=== PATIENT | male | born 1955 | race Caucasian/White ===

== ENCOUNTER 2019-01-15 08:12 | Day surgery (SDC) | payer BC ==
[2019-01-03 10:37] LABS: HEMATOCRIT 46.4 % (37.9-51.0); HEMOGLOBIN 15.9 g/dL (13.5-17.0); MEAN CORPUSCULAR HEMOGLOBIN 32.1 pg (27.0-33.4); MEAN CORPUSCULAR HGB CONC 34.3 g/dL (32.0-36.0); MEAN CORPUSCULAR VOLUME 94 fl (80-97); PLATELET COUNT 218 10^3/uL (150-450); RED BLOOD COUNT 4.95 10^6/uL (4.35-5.55); RED CELL DISTRIBUTION WIDTH 14.7 % (11.5-14.0); WHITE BLOOD COUNT 4.9 10^3/uL (4.0-10.5)
--- NOTE | 2019-01-03 12:45 | EKG REPORT ---
SEVERITY:- NORMAL ECG - SINUS RHYTHM : Confirmed by: Trent Case MD 03-Jan-2019 12:44:35
[~2019-01-15 08:12] MED LIST: CEFAZOLIN 1 GM/D5W RTU 1 GM/50 ML RTUPB IV ONE; CEFAZOLIN 1 GM/D5W RTU 1 GM/50 ML RTUPB IV PRN; LACTATED RINGERS 1000 ML IV PRN; LIDOCAINE 0.5% INJ-PF (5 MG/ML) 50 ML SDV SUBCUT PRN
[2019-01-15] MEDS ORDERED: ALBUTEROL SULFATE 0.083% NEB 2.5 MG/3 ML AMPUL NEB ONE (09:06)
[2019-01-15 10:10] LABS: ANION GAP 6 (5-19); BLOOD UREA NITROGEN 15 mg/dL (7-20); CALCIUM 9.8 mg/dL (8.4-10.2); CARBON DIOXIDE 27 mmol/L (22-30); CHLORIDE 107 mmol/L (98-107); GLUCOSE 92 mg/dL (75-110); POTASSIUM 4.3 mmol/L (3.6-5.0)
[2019-01-15] MEDS ORDERED: FENTANYL CITRATE INJ/PF 250 MCG/5 ML AMPULE ONE (10:24)
[2019-01-15] MEDS ORDERED: ONDANSETRON HCL INJ/PF 4 MG/2 ML SDV ONE (10:24)
[2019-01-15] MEDS ORDERED: DEXAMETHASONE SOD PHOSPHATE INJ 4 MG/1 ML VIAL ONE (10:24)
[2019-01-15] MEDS ORDERED: MIDAZOLAM 2 MG/2 ML INJ ONE (10:24)
[2019-01-15] MEDS ORDERED: MORPHINE SULFATE 10 MG/ML INJ ONE (10:24)
[2019-01-15] MEDS ORDERED: PROPOFOL INJ 200 MG/20 ML VIAL IV ONE (10:24)
[2019-01-15] MEDS ORDERED: FENTANYL CITRATE INJ/PF 100 MCG/2 ML AMPUL IV PRN ×3 (11:19)
[2019-01-15] MEDS ORDERED: MEPERIDINE HCL/PF INJ 25 MG/1 ML DISP.SYRIN IV PRN (11:19)
[2019-01-15] MEDS ORDERED: DIPHENHYDRAMINE HCL 50 MG/ML VIAL IV PRN (11:19)
[2019-01-15] MEDS ORDERED: MORPHINE SULFATE 10 MG/ML INJ IV PRN (11:19)
[2019-01-15] MEDS ORDERED: PROMETHAZINE HCL INJ 25 MG/1 ML VIAL IV PRN ×2 (11:19)
[2019-01-15] MEDS ORDERED: METHYLENE BLUE 50 MG/10 ML AMPULE ONE (12:02)
[2019-01-15] MEDS ORDERED: METHYLENE BLUE 50 MG/10 ML AMPULE MC ONE (12:05)
[2019-01-15] MEDS ORDERED: METOCLOPRAMIDE HCL INJ/PF 10 MG/2 ML SDV ONE (12:22)
[2019-01-15] MEDS ORDERED: PROMETHAZINE HCL INJ 25 MG/1 ML VIAL ONE (12:22)
[2019-01-15] MEDS ORDERED: ROCURONIUM BROMIDE INJ 50 MG/5 ML VIAL IV ONE (12:23)
--- NOTE | 2019-01-15 12:30 | Operative Report ---
Nonrecallable Operative Report DATE OF SURGERY: 01/15/19 PREOPERATIVE DIAGNOSIS: Umbilical hernia lower abdominal pain POSTOPERATIVE DIAGNOSIS: Umbilical hernia polyps/mass at 30 cm OPERATION: Colonoscopy biopsy of mass at 30 cm tattoo at 30 cm SURGEON: LOWELL LAFLEUR ANESTHESIA: GA TISSUE REMOVED OR ALTERED: Biopsy mass at 30 cm COMPLICATIONS: None ESTIMATED BLOOD LOSS: 2 cc INTRAOPERATIVE FINDINGS: Multiple polyps multiple diverticula questionable mass at 30 cm PROCEDURE: Patient was brought to the operating room awake alert stable condition placed the operative table left lateral decubitus position given general anesthesia appropriate timeout and site verification the Olympus colonoscope was utilized for the procedure was placed into the rectum easily passed up to a distance of approximately 25 cm at 25 cm there was stricturing versus tortuous sigmoid colon which took some manipulation to be able to get the scope past that area it appeared that it did not insufflate well and somewhat fixed there are multiple diverticula and at that point we noted large sessile polyps x3 that would be biopsied on exit of the scope. Much manipulation turned the patient in a supine position were able to pass that area to the descending colon we then traversed the descending colon to the sp lenic flexure the transverse colon was identified the hepatic flexure was and the ascending colon to the cecum We then began to slowly withdrew the scope and examined the ascending colon which appeared to be normal as was the hepatic flexure and transverse colon we came around the splenic flexure that appeared to be normal the descending colon also appeared to be normal easily distensible once we were at 30 cm the colon became less distensible noted multiple diverticula. At 30 cm we noted multiple sessile polyps that were large and appeared inflammatory the photodocumentation was obtained. Multiple biopsies of this area were obtained. We then slowly proceeded to remove the scope past the 30 cm ingrid to the distal sigmoid and rectum that appeared to be normal without any evidence of further polyps or masses. The scope was removed. At this point a decision was made not to proceed with the umbilical hernia repair portion of this procedure in lieu of waiting for the biopsies of the sig moid colon CT scan will be obtained because of the fixed stricture. For the patient was awoken in the operating room extubated and transferred recovery in stable condition Needle counts were correct x made blood loss was 2 cc .
--- NOTE | 2019-01-15 12:33 | Discharge Summary ---
Discharge Summary (SDC) - Discharge Final Diagnosis: Sigmoid polyps rule out sigmoid colon cancer, screening colonoscopy Date of Surgery: 01/15/19 Condition: Good Forms: ASU Anesthesia D/C Instruction, Discharge POC-Surgical Service Referrals: LOWELL LAFLEUR MD [ACTIVE STAFF] - 01/28/19 9:15 am Discharge Diet: As Tolerated Discharge Activity: Activity As Tolerated Report the Following to Your Physician Immediately: Increase in Pain - She needs a follow-up appointment with me in 1 week
[2019-01-15] MEDS ORDERED: SIMETHICONE 80 MG TAB.CHEW ONE (12:57)
--- NOTE | 2019-01-15 14:46 | RADIOLOGY REPORT (SQ) ---
EXAM DESCRIPTION: ABDOMEN 2 VIEWS COMPLETED DATE/TIME: 01/15/2019 2:32 pm REASON FOR STUDY: POST OP PACU R19.4 CHANGE IN BOWEL HABIT R10.9 UNSPECIFIED ABDOMINAL PAIN K42.9 UMBILICAL HERNIA WITHOUT OBSTRUCTION OR GANGRENE COMPARISON: None. NUMBER OF VIEWS: Two views. TECHNIQUE: Supine and erect/decubitus radiographic images of the abdomen acquired. LIMITATIONS: None. FINDINGS: FREE AIR: None. No abnormal gas collections. LUNG BASES: Scarring or atelectasis in the left base. BOWEL GAS PATTERN: Distended large and small bowel most likely ileus. CALCIFICATIONS: No suspicious calcifications. SOFT TISSUES: No gross mass or suggestion of organomegaly. HARDWARE: None in the abdomen. BONES: No acute fracture. No worrisome bone lesions. OTHER: No other significant finding. IMPRESSION: No evidence of pneumoperitoneum. Distended large and small bowel most likely ileus. TECHNICAL DOCUMENTATION: JOB ID: [id number] [employer]- All Rights Reserved Reading location - IP/workstation name: [email or web address]
[2019-01-15 16:07] VITALS: BP 131/90
== END 2019-01-15 15:40 | disposition home or self-care (01) ==
LOC: OROUT 08:12
PROVIDERS: ATTEND Surgery
DX: K57.30 Diverticulosis of large intestine without perforation or abscess without bleeding (principal); C18.7 Malignant neoplasm of sigmoid colon; K52.9 Noninfective gastroenteritis and colitis, unspecified; K42.9 Umbilical hernia without obstruction or gangrene; J45.909 Unspecified asthma, uncomplicated; E66.9 Obesity, unspecified; R73.03 Prediabetes; Z79.51 Long term (current) use of inhaled steroids; Z79.899 Other long term (current) drug therapy
CPT/HCPCS: 93005; 36415 ×2; 85027; 80048; 88305 ×2; 74019; 93010; J2250; J0690; J3490; J1100; J3010; J2765; J2550; J2405; J2704; Q9968; 45380; J2270

== ENCOUNTER → 2019-01-25 | Outpatient (CLI) | payer BC ==
--- NOTE | 2019-01-25 11:05 | RADIOLOGY REPORT (SQ) ---
EXAM DESCRIPTION: CT ABD/PELVIS ORAL ONLY COMPLETED DATE/TIME: 01/25/2019 10:53 am REASON FOR STUDY: COLONIC MASS (K63.89) K63.89 OTHER SPECIFIED DISEASES OF INTESTINE COMPARISON: None. TECHNIQUE: CT scan of the abdomen and pelvis performed without intravenous contrast. Oral contrast was administered. Images reviewed with lung, soft tissue, and bone windows. Reconstructed coronal an d sagittal MPR images reviewed. All images stored on PACS. All CT scanners at this facility use dose modulation, iterative reconstruction, and/or weight based d osing when appropriate to reduce radiation dose to as low as reasonably achievable (ALARA). [facility]: Dose Right [facility]: CareDose [facility]: Dose Right [facility]: Teradose 4D [facility]: Smart Technologies RADIATION DOSE: CT Rad equipment meets quality standard of care and radiation dose reduction techniq ues were employed. CTDIvol: 13.2 mGy. DLP: 647 mGy-cm.mGy. LIMITATIONS: None. FINDINGS: LOWER CHEST: No significant findings. No nodules or infiltrates. NON-CONTRASTED LIVER, SPLEEN, ADRENALS: Evaluation limited by lack of IV contrast. No identified sign ificant masses. PANCREAS: No masses. No peripancreatic inflammatory changes. GALLBLADDER: No identified stones by CT criteria. No inflammatory changes to suggest cholecystitis. RIGHT KIDNEY AND URETER: No suspicious masses. Assessment limited by lack of IV contrast. No signif icant calcifications. No hydronephrosis or hydroureter. LEFT KIDNEY AND URETER: No suspicious masses. Assessment limited by lack of IV contrast. No signifi cant calcifications. No hydronephrosis or hydroureter. AORTA AND RETROPERITONEUM: No aneurysm. No retroperitoneal masses or adenopathy. BOWEL AND PERITONEAL CAVITY: Sigmoid diverticulosis with mild stranding around the upper sigmoid and with thickening of a segment of the upper sigmoid. There is no abscess. There is no free air or flu id. APPENDIX: Surgically absent. PELVIS, BLADDER, AND ABDOMINAL WALL:No abnormal masses. No free fluid. Bladder normal. BONES: No significant findings. OTHER: No other significant finding. IMPRESSION: Sigmoid diverticulitis versus localized inflammatory bowel disease. No evidence of perf oration. No evidence of abscess. COMMENT: Quality ID # [id number]: Final reports with documentation of one or more dose reduction techniques (e.g., Automated exposure control, adjustment of the mA and/or kV according to patient size, use of iterative reconstruction technique) TECHNICAL DOCUMENTATION: JOB ID: [id number] [employer]- All Rights Reserved Reading location - IP/workstation name: [email or web address]
== END ==
LOC: RAD 09:54
PROVIDERS: ATTEND Surgery
DX: K57.32 Diverticulitis of large intestine without perforation or abscess without bleeding (principal)
CPT/HCPCS: 74176

== ENCOUNTER 2019-02-28 05:26 | Inpatient (IN) | payer BC ==
[2019-02-22 10:27] LABS: HEMATOCRIT 47.6 % (37.9-51.0); HEMOGLOBIN 16.2 g/dL (13.5-17.0); MEAN CORPUSCULAR HEMOGLOBIN 31.8 pg (27.0-33.4); MEAN CORPUSCULAR HGB CONC 33.9 g/dL (32.0-36.0); MEAN CORPUSCULAR VOLUME 94 fl (80-97); PLATELET COUNT 231 10^3/uL (150-450); RED BLOOD COUNT 5.08 10^6/uL (4.35-5.55); RED CELL DISTRIBUTION WIDTH 14.1 % (11.5-14.0); WHITE BLOOD COUNT 6.2 10^3/uL (4.0-10.5)
[2019-02-22 10:58] LABS: ANION GAP 11 (5-19); BLOOD UREA NITROGEN 14 mg/dL (7-20); CALCIUM 9.9 mg/dL (8.4-10.2); CARBON DIOXIDE 26 mmol/L (22-30); CHLORIDE 103 mmol/L (98-107); GLUCOSE 92 mg/dL (75-110); POTASSIUM 4.6 mmol/L (3.6-5.0)
--- NOTE | 2019-02-24 00:23 | EKG REPORT ---
SEVERITY:- NORMAL ECG - SINUS RHYTHM : Confirmed by: Kee Tobias 24-Feb-2019 00:22:35
[~2019-02-28 05:26] MED LIST changes: -CEFAZOLIN 1 GM/D5W RTU 1 GM/50 ML RTUPB IV ONE; -CEFAZOLIN 1 GM/D5W RTU 1 GM/50 ML RTUPB IV PRN; +CEFAZOLIN SODIUM 1 GM in DEXTROSE 5%-WATER 50 ML IV PRN; -LACTATED RINGERS 1000 ML IV PRN; +METRONIDAZOLE 500 MG/NS RTU 500 MG/100 ML RTUPB IV PRN; +RINGERS SOLUTION,LACTATED 1,000 ML IV PRN
[2019-02-28] MEDS ORDERED: METRONIDAZOLE 500 MG/NS RTU 500 MG/100 ML RTUPB IV ONE (05:49)
[2019-02-28] MEDS ORDERED: FENTANYL CITRATE INJ/PF 250 MCG/5 ML AMPULE ONE (06:36)
[2019-02-28] MEDS ORDERED: MIDAZOLAM 2 MG/2 ML INJ ONE (06:36)
[2019-02-28] MEDS ORDERED: HYDROMORPHONE HCL INJ/PF 2 MG/ML AMPULE ONE (06:36)
[2019-02-28] MEDS ORDERED: PROPOFOL INJ 200 MG/20 ML VIAL IV ONE (06:37)
--- NOTE | 2019-02-28 06:42 | RADIOLOGY REPORT (SQ) ---
EXAM DESCRIPTION: XR CHEST 1 VIEW COMPLETED DATE/TME: 02/28/2019 00:00 CLINICAL HISTORY: 63 years, Male, preop. ASU 1 COMPARISON: None. NUMBER OF VIEWS: One TECHNIQUE: AP view of the chest LIMITATIONS: None. FINDINGS: Lungs are clear except for some left basilar scarring/subsegmental atelectasis. The heart is normal in size. There is no pneumothorax or pleural effusion. The bones are unremarkable. IMPRESSION: No acute cardiopulmonary abnormality copyright 2010 [email or web address]- All Rights Reserved
[2019-02-28] MEDS ORDERED: PROMETHAZINE HCL INJ 25 MG/1 ML VIAL IV PRN (08:18)
[2019-02-28] MEDS ORDERED: FENTANYL CITRATE INJ/PF 100 MCG/2 ML AMPUL IV PRN ×3 (08:18)
[2019-02-28] MEDS ORDERED: MORPHINE SULFATE 10 MG/ML INJ IV PRN (08:18)
[2019-02-28] MEDS ORDERED: MEPERIDINE HCL/PF INJ 25 MG/1 ML DISP.SYRIN IV PRN (08:18)
[2019-02-28] MEDS ORDERED: DIPHENHYDRAMINE HCL 50 MG/ML VIAL IV PRN (08:18)
[2019-02-28] MEDS ORDERED: INDIGOTINDISULFONATE SODIUM INJ 40 MG/5 ML AMPULE ONE (08:52)
[2019-02-28] MEDS ORDERED: BUPIVACAINE HCL 0.5%-EPI 1:200000 INJ/PF 30 ML VIAL ONE (10:06)
[2019-02-28] MEDS ORDERED: ONDANSETRON HCL INJ/PF 4 MG/2 ML SDV IV PRN (10:15)
[2019-02-28] MEDS ORDERED: CEFAZOLIN 1 GM/D5W RTU 50 ML IV SCH (10:30)
--- NOTE | 2019-02-28 10:33 | Operative Report ---
Nonrecallable Operative Report DATE OF SURGERY: 02/28/19 PREOPERATIVE DIAGNOSIS: Sigmoid diverticulitis umbilical hernia POSTOPERATIVE DIAGNOSIS: Sigmoid diverticulitis umbilical hernia OPERATION: Laparoscopic sigmoid resection with umbilical hernia repair SURGEON: LOWELL LAFLEUR 1ST FIELD TRAINING MANAGER: ANGIE JACOB ANESTHESIA: GA TISSUE REMOVED OR ALTERED: Sigmoid colon COMPLICATIONS: None ESTIMATED BLOOD LOSS: 100 cc INTRAOPERATIVE FINDINGS: See dictation PROCEDURE: Patient was brought to the operating room awake alert stable condition placed in the upper table supine position induced under general anesthesia and intubated he was then placed in low lithotomy position. After appropriate timeout and site verification a varies needle was placed into the umbilicus and the abdomen was insufflated with 6 L of CO2 gas. Infra umbilical 10 mm incision was made with a 15 blade and a 10 mm port placed in the abdominal cavity through the umbilical hernia. Intraoperative visualization revealed no evidence of a varies needle or trocar injury. A 12 mm port was placed in the left lower quadrant 5 mm port in the left upper quadrant and another 5 mm port in the right upper quadrant we visualized the sigmoid colon was markedly thickened and adhesed to the anterior abdominal wall which was taken down with sharp dissection using the LigaSure device. Once we mobilized the sigmoid colon with the LigaSure device away from the inflammatory adhesions we were able to retract the rectum up into the abdominal cavity from the pelvis we began our division of the peritoneal reflection on the left side being careful not to injure the ureter on the left and this was visu alized throughout the course of the procedure. Wheeze LigaSure device to incise a white line of Toldt all the way up to the proximal ascending colon. We then cleared the peritoneum off the proximal rectum distal sigmoid with the LigaSure device and came across the proximal rectum with one firing of the Endo LUIS MIGUEL stapler with a blue load. Which we did this we mobilized the mesentery of the sigmoid colon with the LigaSure device again making sure we did not injure the ureters. Continue this dissection up to the proximal descending colon. Once the colon was freed up we made a transverse incision in the left abdominal wall with a 10 blade approximately 8 cm long carried our dissection down through subtenons tissue with the Bovie cautery the rectus fascia was opened with Bovie cautery the m uscle was divided with Bovie cautery the posterior sheath was opened. We then delivered the specimen through the incision after we placed a wound protector. We then came across the mid descending colon after a pursestring suture was placed on the stay side. We remove the specimen. We then placed 3 Allis clamps on the edge of the colon opened it up in size it with the stapler sizers. It easily accepted a 29 mm anvil. This was placed into the colon and the pursestring suture was tied down. the descending colon and and will return to the abdominal cavity and the posterior sheath was closed with 0 running Vicryl suture. From below we placed a 29 mm EEA stapler into the rectum opened it connected to the anvil and the descending colon closed and fired creating a coloproctostomy. Patient was placed in reverse Trendelenburg the pelvis was filled with water a bowel clamp was placed on the descending colon and we insufflated with pressure to distend up the anastomosis there is no evidence of bubbles. We then reinforced the staple line with circumferentially placed 2-0 silk sutures. We then again checked for integrity and it was intact to the ureters were intact there is no significant bleeding we reduce the pneumoperitoneum and remove the ports. We then closed the left-sided incision with interrupted 0 Vicryl sutures in the anterior sheath closed the umbilical hernia defect with a [id number] placed 0 Vicryl suture and closed the 10 mm port in the left lower quadrant with 0 Vicryl suture in the fascia. We did leave a Jewel-Mendez drain in the pelvis and brought out through the 5 mm port site on the left abdominal wall. The skin was closed with standard skin clips. Estimated blood loss for the procedure was 100 cc sponge and needle counts were correct x2. Angie ARECHIGA was present for the entire procedure for help with wound retraction wound closure. The patient was awakened in the operating x-ray transferred recovery in stable condition.
[2019-02-28] MEDS ORDERED: ACETAMINOPHEN 1,000 MG/100 ML RTUPB IV ONE (11:00)
[2019-02-28] MEDS ORDERED: ONDANSETRON HCL INJ/PF 4 MG/2 ML SDV ONE ×2 (11:00→14:03)
[2019-02-28] MEDS ORDERED: PROMETHAZINE HCL INJ 25 MG/1 ML VIAL ONE (11:23)
[2019-02-28] MEDS ORDERED: ACETAMINOPHEN INJ/PF 1000 MG/100 ML SDV IV SCH (12:00)
[2019-02-28] MEDS ORDERED: DEXAMETHASONE SOD PHOSPHATE INJ 4 MG/1 ML VIAL ONE (14:03)
[2019-02-28] MEDS ORDERED: GLYCOPYRROLATE 1 MG/5 ML VIAL ONE (14:03)
[2019-02-28] MEDS ORDERED: VECURONIUM BROMIDE INJ 10 MG VIAL IV ONE (14:03)
[2019-02-28] MEDS ORDERED: LIDOCAINE 2% INJ-PF (20 MG/ML) 2 ML AMPUL ONE (14:03)
[2019-02-28] MEDS ORDERED: NEOSTIGMINE METHYLSULFATE 10 MG/10 ML VIAL ONE (14:03)
[2019-02-28] MEDS ORDERED: SUCCINYLCHOLINE CHLORIDE INJ 200 MG/10 ML VIAL ONE (14:03)
[2019-02-28] MEDS: HEPARIN SOD (PORCINE) 5,000 UNIT/ML 1 ML VIAL SUBCUT SCH ×2 (14:38→22:26)
[2019-02-28] MEDS: ACETAMINOPHEN 1,000 MG/100 ML RTUPB IV SCH ×3 (14:50→23:24)
[2019-02-28] MEDS: POTASSI CL 20 MEQ/D5-1/2NS 1L 1,000 ML IV PRN ×2 (15:03→22:31)
[2019-02-28] MEDS: CEFAZOLIN SODIUM 1 GM in DEXTROSE 5%-WATER 50 ML IV SCH ×2 (15:23→22:22)
[2019-02-28] MEDS: MORPHINE SULFATE 10 MG/ML INJ IV PRN (20:01)
[2019-02-28] MEDS: FAMOTIDINE INJ/PF 20 MG/2 ML SDV IV SCH (22:23)
[2019-03-01 04:45] LABS: ABSOLUTE LYMPHOCYTES (AUTO) 0.7 10^3/uL (0.5-4.7); ABSOLUTE MONOCYTES (AUTO) 0.9 10^3/uL (0.1-1.4); ABSOLUTE NEUT (AUTO) 8.3 10^3/uL (1.7-8.2); HEMATOCRIT 42.3 % (37.9-51.0); HEMOGLOBIN 14.2 g/dL (13.5-17.0); MEAN CORPUSCULAR HEMOGLOBIN 31.8 pg (27.0-33.4); MEAN CORPUSCULAR HGB CONC 33.7 g/dL (32.0-36.0); MEAN CORPUSCULAR VOLUME 94 fl (80-97); MONOCYTES % (AUTO) 8.8 % (3-13); PLATELET COUNT 212 10^3/uL (150-450); RED BLOOD COUNT 4.48 10^6/uL (4.35-5.55); RED CELL DISTRIBUTION WIDTH 13.7 % (11.5-14.0); SEGMENTED NEUTROPHILS % (AUTO) 84.2 % (42-78); TOTAL CELLS COUNTED % (AUTO) 100 %; WHITE BLOOD COUNT 9.9 10^3/uL (4.0-10.5)
[2019-03-01 05:05] LABS: ANION GAP 9 (5-19); BLOOD UREA NITROGEN 10 mg/dL (7-20); CALCIUM 9.1 mg/dL (8.4-10.2); CARBON DIOXIDE 26 mmol/L (22-30); CHLORIDE 107 mmol/L (98-107); GLUCOSE 112 mg/dL (75-110); POTASSIUM 4.3 mmol/L (3.6-5.0)
[2019-03-01] MEDS: MORPHINE SULFATE 10 MG/ML INJ IV PRN ×3 (06:20→20:06)
[2019-03-01] MEDS: CEFAZOLIN SODIUM 1 GM in DEXTROSE 5%-WATER 50 ML IV SCH ×3 (06:20→22:21)
[2019-03-01] MEDS: HEPARIN SOD (PORCINE) 5,000 UNIT/ML 1 ML VIAL SUBCUT SCH ×3 (06:27→22:18)
[2019-03-01] MEDS: POTASSI CL 20 MEQ/D5-1/2NS 1L 1,000 ML IV PRN ×2 (06:34→18:53)
[2019-03-01] MEDS: ACETAMINOPHEN 1,000 MG/100 ML RTUPB IV SCH ×3 (07:40→17:15)
--- NOTE | 2019-03-01 08:12 | PDOC PROGRESS REPORT ---
Subjective Progress Note for:: 03/01/19 Subjective:: Feels okay complains of lower abdominal soreness Reason For Visit: K57.92 DVTRCLI OF INTEST, PART UNSP, W/O PERF OR A Physical Exam Vital Signs: Temp Pulse Resp BP Pulse Ox 97.7 F 60 17 107/73 94 02/28/19 23:23 02/28/19 23:23 02/28/19 20:00 02/28/19 23:23 02/28/19 23:23 Intake & Output 02/28/19 03/01/19 03/02/19 06:59 06:59 06:59 Intake Total 0 3883 Output Total 925 Balance 0 2958 Weight 93.5 kg General appearance: PRESENT: no acute distress Head exam: PRESENT: normocephalic Eye exam: PRESENT: EOMI Mouth exam: PRESENT: dry mucosa Neck exam: PRESENT: full ROM Respiratory exam: PRESENT: clear to auscultation stef Cardiovascular exam: PRESENT: RRR Pulses: PRESENT: normal radial pulses, normal femoral pulses GI/Abdominal exam: PRESENT: soft - BRANDT serosanguineous Rectal exam: PRESENT: deferred Gentrourinary exam: PRESENT: indwelling catheter Extremities exam: PRESENT: full ROM Musculoskeletal exam: PRESENT: full ROM Neurological exam: PRESENT: alert, awake, oriented to person, oriented to place Psychiatric exam: PRESENT: appropriate affect Skin exam: PRESENT: dry Results Laboratory Results: 03/01/19 03:49 03/01/19 03:49 03/01/19 03/01/19 03:49 03:49 WBC 9.9 RBC 4.48 Hgb 14.2 Hct 42.3 MCV 94 MCH 31.8 MCHC 33.7 RDW 13.7 Plt Count 212 Seg Neutrophils % 84.2 H Sodium 141.9 Potassium 4.3 Chloride 107 Carbon Dioxide 26 Anion Gap 9 BUN 10 Creatinine 0.90 Est GFR ( Amer) > 60 Glucose 112 H Calcium 9.1 Impressions: Chest X-Ray 02/28/19 00:00 IMPRESSION: No acute cardiopulmonary abnormality copyright 2011 [employer]- All Rights Reserved Assessment & Plan - Time Time Spent with patient: 25-34 minutes - Plan Summary Plan Summary: Postop day 1 status post sigmoid colectomy for diverticulitis patient is doing well Will continue with clear liquid diet today to return of bowel function we will continue with the indwelling Saravia catheter secondary to BPH prior to surgery Patient will up out of bed today ambulating
[2019-03-01] MEDS: FAMOTIDINE INJ/PF 20 MG/2 ML SDV IV SCH ×2 (09:57→22:18)
[2019-03-02] MEDS: ACETAMINOPHEN 1,000 MG/100 ML RTUPB IV SCH ×4 (00:20→18:46)
[2019-03-02] MEDS: POTASSI CL 20 MEQ/D5-1/2NS 1L 1,000 ML IV PRN ×2 (04:44→16:08)
[2019-03-02] MEDS: CEFAZOLIN SODIUM 1 GM in DEXTROSE 5%-WATER 50 ML IV SCH ×3 (05:26→21:55)
[2019-03-02] MEDS: HEPARIN SOD (PORCINE) 5,000 UNIT/ML 1 ML VIAL SUBCUT SCH ×3 (05:26→21:56)
[2019-03-02 09:00] LABS: ABSOLUTE MONOCYTES (AUTO) 0.8 10^3/uL (0.1-1.4); ABSOLUTE NEUT (AUTO) 6.9 10^3/uL (1.7-8.2); BASOPHILS % (AUTO) 0.6 % (0-2); EOSINOPHILS % (AUTO) 0.4 % (0-6); HEMATOCRIT 42.6 % (37.9-51.0); HEMOGLOBIN 14.5 g/dL (13.5-17.0); MEAN CORPUSCULAR HEMOGLOBIN 31.9 pg (27.0-33.4); MEAN CORPUSCULAR VOLUME 94 fl (80-97); MONOCYTES % (AUTO) 8.9 % (3-13); PLATELET COUNT 188 10^3/uL (150-450); RED BLOOD COUNT 4.53 10^6/uL (4.35-5.55); RED CELL DISTRIBUTION WIDTH 13.9 % (11.5-14.0); SEGMENTED NEUTROPHILS % (AUTO) 79.1 % (42-78); TOTAL CELLS COUNTED % (AUTO) 100 %; WHITE BLOOD COUNT 8.7 10^3/uL (4.0-10.5)
[2019-03-02] MEDS ORDERED: KETOROLAC TROMETHAMINE INJ/PF 30 MG/1 ML SDV IV SCH (09:00)
--- NOTE | 2019-03-02 09:02 | PDOC PROGRESS REPORT ---
Subjective Progress Note for:: 03/02/19 Subjective:: c/o left sided abd incisional pain Reason For Visit: K57.92 DVTRCLI OF INTEST, PART UNSP, W/O PERF OR A Physical Exam Vital Signs: Temp Pulse Resp BP Pulse Ox 97.8 F 66 18 132/79 H 96 03/02/19 00:51 03/02/19 00:51 03/02/19 00:51 03/02/19 00:51 03/02/19 00:51 Intake & Output 03/01/19 03/02/19 03/03/19 06:59 06:59 06:59 Intake Total 3883 4130 Output Total 925 3380 Balance 2958 750 Weight 93.5 kg General appearance: PRESENT: no acute distress Head exam: PRESENT: normocephalic Eye exam: PRESENT: EOMI Mouth exam: PRESENT: moist Neck exam: PRESENT: full ROM Respiratory exam: PRESENT: clear to auscultation stef Cardiovascular exam: PRESENT: RRR Pulses: PRESENT: normal radial pulses, normal femoral pulses GI/Abdominal exam: PRESENT: soft, tenderness - incisional Rectal exam: PRESENT: deferred Gentrourinary exam: PRESENT: indwelling catheter Extremities exam: PRESENT: full ROM Musculoskeletal exam: PRESENT: full ROM Neurological exam: PRESENT: alert, altered, awake, oriented to person, oriented to place, oriented to time, oriented to situation Psychiatric exam: PRESENT: appropriate affect Skin exam: PRESENT: dry Results Impressions: Chest X-Ray 02/28/19 00:00 IMPRESSION: No acute cardiopulmonary abnormality copyright 2011 [email or web address]- All Rights Reserved Assessment & Plan - Time Time Spent with patient: 25-34 minutes - Plan Summary Plan Summary: s/p sigmoid colectomy doing ok passing flatus today incisioanl pain will add toradol cont only clears.
[2019-03-02 09:17] LABS: ANION GAP 10 (5-19); BLOOD UREA NITROGEN 6 mg/dL (7-20); CALCIUM 9.4 mg/dL (8.4-10.2); CARBON DIOXIDE 23 mmol/L (22-30); CHLORIDE 106 mmol/L (98-107); GLUCOSE 108 mg/dL (75-110)
[2019-03-02 09:22] LABS: POTASSIUM 4.1 mmol/L (3.6-5.0)
[2019-03-02] MEDS: MORPHINE SULFATE 10 MG/ML INJ IV PRN ×2 (10:34→13:57)
[2019-03-02] MEDS: FAMOTIDINE INJ/PF 20 MG/2 ML SDV IV SCH ×2 (10:36→21:55)
[2019-03-02] MEDS: KETOROLAC TROMETHAMINE INJ/PF 30 MG/1 ML SDV IV SCH ×2 (16:05→21:55)
[2019-03-03] MEDS: ACETAMINOPHEN 1,000 MG/100 ML RTUPB IV SCH ×2 (01:07→05:34)
[2019-03-03] MEDS: KETOROLAC TROMETHAMINE INJ/PF 30 MG/1 ML SDV IV SCH ×4 (04:22→19:59)
[2019-03-03] MEDS: CEFAZOLIN SODIUM 1 GM in DEXTROSE 5%-WATER 50 ML IV SCH ×3 (05:34→21:28)
[2019-03-03 08:53] LABS: ABSOLUTE EOSINOPHILS # (AUTO) 0.1 10^3/uL (0.0-0.6); ABSOLUTE MONOCYTES (AUTO) 0.5 10^3/uL (0.1-1.4); BASOPHILS % (AUTO) 0.7 % (0-2); EOSINOPHILS % (AUTO) 1.9 % (0-6); HEMATOCRIT 40.8 % (37.9-51.0); LYMPHOCYTES % (AUTO) 14.3 % (13-45); MEAN CORPUSCULAR HEMOGLOBIN 32.1 pg (27.0-33.4); MEAN CORPUSCULAR HGB CONC 34.2 g/dL (32.0-36.0); MEAN CORPUSCULAR VOLUME 94 fl (80-97); MONOCYTES % (AUTO) 7.7 % (3-13); PLATELET COUNT 190 10^3/uL (150-450); RED BLOOD COUNT 4.35 10^6/uL (4.35-5.55); RED CELL DISTRIBUTION WIDTH 13.7 % (11.5-14.0); SEGMENTED NEUTROPHILS % (AUTO) 75.4 % (42-78); TOTAL CELLS COUNTED % (AUTO) 100 %; WHITE BLOOD COUNT 6.7 10^3/uL (4.0-10.5)
[2019-03-03] MEDS: FAMOTIDINE INJ/PF 20 MG/2 ML SDV IV SCH ×2 (09:04→21:28)
[2019-03-03] MEDS: HEPARIN SOD (PORCINE) 5,000 UNIT/ML 1 ML VIAL SUBCUT SCH ×2 (09:04→21:28)
[2019-03-03 09:14] LABS: ANION GAP 10 (5-19); BLOOD UREA NITROGEN 7 mg/dL (7-20); CALCIUM 9.2 mg/dL (8.4-10.2); CARBON DIOXIDE 21 mmol/L (22-30); CHLORIDE 109 mmol/L (98-107); GLUCOSE 125 mg/dL (75-110); POTASSIUM 4.1 mmol/L (3.6-5.0)
[2019-03-03] MEDS ORDERED: TAMSULOSIN HCL 0.4 MG CAP.SR.24H PO ONE (09:42)
--- NOTE | 2019-03-03 09:46 | PDOC PROGRESS REPORT ---
Subjective Progress Note for:: 03/03/19 Subjective:: feels much better, passing flatus Reason For Visit: K57.92 DVTRCLI OF INTEST, PART UNSP, W/O PERF OR A Physical Exam Vital Signs: Temp Pulse Resp BP Pulse Ox 97.4 F 70 17 122/76 93 03/03/19 07:51 03/03/19 07:51 03/03/19 07:51 03/03/19 07:51 03/03/19 07:51 Intake & Output 03/02/19 03/03/19 03/04/19 06:59 06:59 06:59 Intake Total 4130 2020 Output Total 3380 3900 20 Balance 750 -1880 -20 Weight 93.8 kg General appearance: PRESENT: no acute distress Head exam: PRESENT: normocephalic Eye exam: PRESENT: EOMI Ear exam: PRESENT: normal external ear exam Mouth exam: PRESENT: moist Neck exam: PRESENT: full ROM Respiratory exam: PRESENT: clear to auscultation stef Cardiovascular exam: PRESENT: RRR Pulses: PRESENT: normal femoral pulses, normal dorsalis pedis pul GI/Abdominal exam: PRESENT: soft Rectal exam: PRESENT: deferred Gentrourinary exam: PRESENT: indwelling catheter Extremities exam: PRESENT: full ROM Neurological exam: PRESENT: alert, awake, oriented to person, oriented to place, oriented to time, oriented to situation Psychiatric exam: PRESENT: appropriate affect Skin exam: PRESENT: dry Results Laboratory Results: 03/03/19 08:26 03/03/19 08:26 03/03/19 03/03/19 08:26 08:26 WBC 6.7 RBC 4.35 Hgb 14.0 Hct 40.8 MCV 94 MCH 32.1 MCHC 34.2 RDW 13.7 Plt Count 190 Seg Neutrophils % 75.4 Sodium 139.9 Potassium 4.1 Chloride 109 H Carbon Dioxide 21 L Anion Gap 10 BUN 7 Creatinine 0.85 Est GFR ( Amer) > 60 Glucose 125 H Calcium 9.2 Impressions: Chest X-Ray 02/28/19 00:00 IMPRESSION: No acute cardiopulmonary abnormality copyright 2011 [employer]- All Rights Reserved Assessment & Plan - Time Time Spent with patient: 25-34 minutes - Plan Summary Plan Summary: s/p sigmoid colectomy for divertiulitis doing well pod 3 passing flatus plan will dc albarado advance to full liquid start his home flomax hep lock ivf.
[2019-03-04] MEDS: KETOROLAC TROMETHAMINE INJ/PF 30 MG/1 ML SDV IV SCH ×4 (03:37→21:37)
[2019-03-04] MEDS: CEFAZOLIN SODIUM 1 GM in DEXTROSE 5%-WATER 50 ML IV SCH ×3 (05:41→21:36)
[2019-03-04 08:46] LABS: ABSOLUTE BASOPHILS # (AUTO) 0.1 10^3/uL (0.0-0.2); ABSOLUTE EOSINOPHILS # (AUTO) 0.1 10^3/uL (0.0-0.6); ABSOLUTE LYMPHOCYTES (AUTO) 1.1 10^3/uL (0.5-4.7); ABSOLUTE MONOCYTES (AUTO) 0.3 10^3/uL (0.1-1.4); ABSOLUTE NEUT (AUTO) 3.7 10^3/uL (1.7-8.2); EOSINOPHILS % (AUTO) 2.5 % (0-6); HEMATOCRIT 42.5 % (37.9-51.0); HEMOGLOBIN 14.5 g/dL (13.5-17.0); LYMPHOCYTES % (AUTO) 20.3 % (13-45); MEAN CORPUSCULAR HEMOGLOBIN 31.9 pg (27.0-33.4); MEAN CORPUSCULAR HGB CONC 34.1 g/dL (32.0-36.0); MEAN CORPUSCULAR VOLUME 94 fl (80-97); MONOCYTES % (AUTO) 6.4 % (3-13); PLATELET COUNT 223 10^3/uL (150-450); RED BLOOD COUNT 4.54 10^6/uL (4.35-5.55); RED CELL DISTRIBUTION WIDTH 13.4 % (11.5-14.0); SEGMENTED NEUTROPHILS % (AUTO) 69.8 % (42-78); TOTAL CELLS COUNTED % (AUTO) 100 %; WHITE BLOOD COUNT 5.2 10^3/uL (4.0-10.5)
--- NOTE | 2019-03-04 08:49 | PDOC PROGRESS REPORT ---
Subjective Progress Note for:: 03/04/19 Subjective:: feels better still with some left sided incisional pain Reason For Visit: K57.92 DVTRCLI OF INTEST, PART UNSP, W/O PERF OR A Physical Exam Vital Signs: Temp Pulse Resp BP Pulse Ox 97.4 F 85 17 119/80 94 03/03/19 23:56 03/03/19 23:56 03/03/19 23:56 03/03/19 23:56 03/03/19 23:56 Intake & Output 03/03/19 03/04/19 03/05/19 06:59 06:59 06:59 Intake Total 2019 2321 Output Total 3900 1085 20 Balance -1880 1237 -20 Weight 93.8 kg 93.2 kg General appearance: PRESENT: no acute distress Head exam: PRESENT: normocephalic Eye exam: PRESENT: EOMI Ear exam: PRESENT: normal external ear exam Mouth exam: PRESENT: moist Neck exam: PRESENT: full ROM Respiratory exam: PRESENT: clear to auscultation stef Cardiovascular exam: PRESENT: RRR Pulses: PRESENT: normal femoral pulses, normal dorsalis pedis pul GI/Abdominal exam: PRESENT: soft Rectal exam: PRESENT: deferred Extremities exam: PRESENT: full ROM Musculoskeletal exam: PRESENT: full ROM Neurological exam: PRESENT: alert, altered, awake, oriented to person, oriented to place Psychiatric exam: PRESENT: appropriate affect Skin exam: PRESENT: dry Results Laboratory Results: 03/04/19 08:05 03/03/19 03/03/19 03/04/19 08:26 08:26 08:05 WBC 6.7 5.2 RBC 4.35 4.54 Hgb 14.0 14.5 Hct 40.8 42.5 MCV 94 94 MCH 32.1 31.9 MCHC 34.2 34.1 RDW 13.7 13.4 Plt Count 190 223 Seg Neutrophils % 75.4 69.8 Sodium 139.9 Potassium 4.1 Chloride 109 H Carbon Dioxide 21 L Anion Gap 10 BUN 7 Creatinine 0.85 Est GFR ( Amer) > 60 Glucose 125 H Calcium 9.2 Impressions: Chest X-Ray 02/28/19 00:00 IMPRESSION: No acute cardiopulmonary abnormality copyright 2011 [employer]- All Rights Reserved Assessment & Plan - Time Time Spent with patient: 25-34 minutes - Plan Summary Plan Summary: doing well still awaiting bm cont full liquids for now. labs reviewed.
[2019-03-04 08:58] LABS: ANION GAP 10 (5-19); BLOOD UREA NITROGEN 10 mg/dL (7-20); CALCIUM 9.4 mg/dL (8.4-10.2); CARBON DIOXIDE 25 mmol/L (22-30); CHLORIDE 103 mmol/L (98-107); GLUCOSE 148 mg/dL (75-110); POTASSIUM 4.1 mmol/L (3.6-5.0)
[2019-03-04] MEDS: HEPARIN SOD (PORCINE) 5,000 UNIT/ML 1 ML VIAL SUBCUT SCH ×2 (09:43→21:37)
[2019-03-04] MEDS: FAMOTIDINE INJ/PF 20 MG/2 ML SDV IV SCH ×2 (09:43→21:37)
[2019-03-05] MEDS: KETOROLAC TROMETHAMINE INJ/PF 30 MG/1 ML SDV IV SCH ×4 (04:06→20:50)
[2019-03-05] MEDS: CEFAZOLIN SODIUM 1 GM in DEXTROSE 5%-WATER 50 ML IV SCH (06:27)
--- NOTE | 2019-03-05 07:51 | PDOC PROGRESS REPORT ---
Subjective Progress Note for:: 03/05/19 Subjective:: feels well passing flatus 1 bm yesterday Reason For Visit: K57.92 DVTRCLI OF INTEST, PART UNSP, W/O PERF OR A Physical Exam Vital Signs: Temp Pulse Resp BP Pulse Ox 97.7 F 67 17 122/83 96 03/04/19 23:28 03/04/19 23:28 03/04/19 20:00 03/04/19 23:28 03/04/19 23:28 Intake & Output 03/04/19 03/05/19 03/06/19 06:59 06:59 06:59 Intake Total 2322 930 Output Total 1085 60 Balance 1237 870 Weight 93.2 kg 93.2 kg General appearance: PRESENT: no acute distress Head exam: PRESENT: normocephalic Eye exam: PRESENT: EOMI Mouth exam: PRESENT: moist Neck exam: PRESENT: full ROM Respiratory exam: PRESENT: clear to auscultation stef Cardiovascular exam: PRESENT: RRR Pulses: PRESENT: normal radial pulses, normal femoral pulses GI/Abdominal exam: PRESENT: soft Rectal exam: PRESENT: deferred Extremities exam: PRESENT: full ROM Musculoskeletal exam: PRESENT: full ROM Neurological exam: PRESENT: alert, awake, oriented to person, oriented to place Psychiatric exam: PRESENT: appropriate affect Skin exam: PRESENT: dry Results Laboratory Results: 03/04/19 08:05 03/04/19 08:05 03/04/19 03/04/19 08:05 08:05 WBC 5.2 RBC 4.54 Hgb 14.5 Hct 42.5 MCV 94 MCH 31.9 MCHC 34.1 RDW 13.4 Plt Count 223 Seg Neutrophils % 69.8 Sodium 137.9 Potassium 4.1 Chloride 103 Carbon Dioxide 25 Anion Gap 10 BUN 10 Creatinine 0.89 Est GFR ( Amer) > 60 Glucose 148 H Calcium 9.4 Impressions: Chest X-Ray 02/28/19 00:00 IMPRESSION: No acute cardiopulmonary abnormality copyright 2011 [employer]- All Rights Reserved Assessment & Plan - Time Time Spent with patient: 25-34 minutes - Plan Summary Plan Summary: doing well will advance to reg diet prob home in am dc iv abx dc maint iv
[2019-03-05 08:13] LABS: ABSOLUTE EOSINOPHILS # (AUTO) 0.2 10^3/uL (0.0-0.6); ABSOLUTE LYMPHOCYTES (AUTO) 1.4 10^3/uL (0.5-4.7); ABSOLUTE MONOCYTES (AUTO) 0.6 10^3/uL (0.1-1.4); BASOPHILS % (AUTO) 0.7 % (0-2); EOSINOPHILS % (AUTO) 3.1 % (0-6); LYMPHOCYTES % (AUTO) 21.7 % (13-45); MEAN CORPUSCULAR HEMOGLOBIN 32.1 pg (27.0-33.4); MEAN CORPUSCULAR HGB CONC 34.2 g/dL (32.0-36.0); MEAN CORPUSCULAR VOLUME 94 fl (80-97); MONOCYTES % (AUTO) 10.1 % (3-13); PLATELET COUNT 255 10^3/uL (150-450); RED BLOOD COUNT 4.68 10^6/uL (4.35-5.55); RED CELL DISTRIBUTION WIDTH 13.3 % (11.5-14.0); SEGMENTED NEUTROPHILS % (AUTO) 64.4 % (42-78); TOTAL CELLS COUNTED % (AUTO) 100 %; WHITE BLOOD COUNT 6.2 10^3/uL (4.0-10.5)
[2019-03-05 08:18] LABS: ANION GAP 10 (5-19); BLOOD UREA NITROGEN 11 mg/dL (7-20); CALCIUM 10.1 mg/dL (8.4-10.2); CARBON DIOXIDE 25 mmol/L (22-30); CHLORIDE 105 mmol/L (98-107); GLUCOSE 87 mg/dL (75-110); POTASSIUM 4.6 mmol/L (3.6-5.0)
[2019-03-05] MEDS: FAMOTIDINE INJ/PF 20 MG/2 ML SDV IV SCH ×2 (09:51→22:00)
[2019-03-05] MEDS: HEPARIN SOD (PORCINE) 5,000 UNIT/ML 1 ML VIAL SUBCUT SCH ×2 (09:51→22:50)
[2019-03-06] MEDS: KETOROLAC TROMETHAMINE INJ/PF 30 MG/1 ML SDV IV SCH ×2 (03:06→08:57)
[2019-03-06] MEDS: FAMOTIDINE INJ/PF 20 MG/2 ML SDV IV SCH (09:00)
--- NOTE | 2019-03-06 09:17 | PDOC DISCHARGE SUMMARY ---
General - Admit/Disc Date/PCP Admission Date/Primary Care Provider: 02/28/19 05:26 MATEUSZ LOGAN PA-C Discharge Date: 03/06/19 - Discharge Diagnosis Final Diagnosis: diverticulitis - Assessment Summary: Is a 63-year-old male who was admitted on the day of admission for elective laparoscopic sigmoid colectomy. He underwent the procedure on the day of admission tolerated well and had a benign routine postoperative course. He was started on a clear liquid diet on postop day 1 and upon return of bowel function his diet was advanced to a soft diet by the time of discharge. He is now tolerating a soft diet having normal bowel function and ready for discharge home. He is instructed not to lift anything more than 5 to 10 pounds for the next 4 to 6 weeks. He will be given a follow-up appointment in surgery clinic in 7 to 10 days. - Additional Information Resuscitation Status: Full Code Discharge Diet: As Tolerated Discharge Activity: Activity As Tolerated, No Lifting Over 10 Pounds - Patient needs a follow-up appointment with me in 7 to 10 days Referrals: LOWELL LAFLEUR MD [ACTIVE STAFF] - 03/11/19 9:15 am (post hernia repair 02/28) Home Medications: Albuterol Sulfate [Ventolin Hfa 8 gm Mdi (1 Mdi/ER Disp)] 2 puff IH Q6HP PRN 02/28/19 Ergocalciferol (Vitamin D2) [Vitamin D] 400 unit PO DAILY 02/28/19 Fluticasone Propionate [Flonase Allergy Relief] 1 applic NS DAILYP PRN 02/28/19 Tamsulosin HCl [Flomax 0.4 mg Cap.sr] 0.4 mg PO DAILY 02/28/19 History of Present Illiness History of Present Illness: JAIME MOTA III is a 63 year old male Physical Exam Vital Signs: Temp Pulse Resp BP Pulse Ox 97.7 F 65 14 109/71 94 03/06/19 00:00 03/06/19 00:00 03/06/19 00:00 03/06/19 00:00 03/06/19 00:00 Intake & Output 03/05/19 03/06/19 03/07/19 06:59 06:59 06:59 Intake Total 930 1040 Output Total 60 Balance 870 1040 Weight 93.2 kg 90.3 kg Results Laboratory Results: WBC 6.2 10^3/uL (4.0-10.5) 03/05/19 07:51 RBC 4.68 10^6/uL (4.35-5.55) 03/05/19 07:51 Hgb 15.0 g/dL (13.5-17.0) 03/05/19 07:51 Hct 44.0 % (37.9-51.0) 03/05/19 07:51 MCV 94 fl (80-97) 03/05/19 07:51 MCH 32.1 pg (27.0-33.4) 03/05/19 07:51 MCHC 34.2 g/dL (32.0-36.0) 03/05/19 07:51 RDW 13.3 % (11.5-14.0) 03/05/19 07:51 Plt Count 255 10^3/uL (150-450) 03/05/19 07:51 Lymph % (Auto) 21.7 % (13-45) 03/05/19 07:51 Bennett % (Auto) 10.1 % (3-13) 03/05/19 07:51 Eos % (Auto) 3.1 % (0-6) 03/05/19 07:51 Baso % (Auto) 0.7 % (0-2) 03/05/19 07:51 Absolute Neuts (auto) 4.0 10^3/uL (1.7-8.2) 03/05/19 07:51 Absolute Lymphs (auto) 1.4 10^3/uL (0.5-4.7) 03/05/19 07:51 Absolute Monos (auto) 0.6 10^3/uL (0.1-1.4) 03/05/19 07:51 Absolute Eos (auto) 0.2 10^3/uL (0.0-0.6) 03/05/19 07:51 Absolute Basos (auto) 0.0 10^3/uL (0.0-0.2) 03/05/19 07:51 Seg Neutrophils % 64.4 % (42-78) 03/05/19 07:51 Sodium 140.0 mmol/L (137-145) 03/05/19 07:51 Potassium 4.6 mmol/L (3.6-5.0) 03/05/19 07:51 Chloride 105 mmol/L (98-107) 03/05/19 07:51 Carbon Dioxide 25 mmol/L (22-30) 03/05/19 07:51 Anion Gap 10 (5-19) 03/05/19 07:51 BUN 11 mg/dL (7-20) 03/05/19 07:51 Creatinine 0.97 mg/dL (0.52-1.25) 03/05/19 07:51 Est GFR ( Amer) > 60 (>60) 03/05/19 07:51 Est GFR (MDRD) Non-Af > 60 (>60) 03/05/19 07:51 Glucose 87 mg/dL (75-110) 03/05/19 07:51 Calcium 10.1 mg/dL (8.4-10.2) 03/05/19 07:51 Impressions: Chest X-Ray 02/28/19 00:00 IMPRESSION: No acute cardiopulmonary abnormality copyright 2011 [employer]- All Rights Reserved
[2019-03-06 10:01] VITALS: BP 126/84
== END 2019-03-06 09:56 | disposition home or self-care (01) | DRG 331 ==
LOC: INOR 05:26 → 4S 12:37
PROVIDERS: ADMIT Surgery; ATTEND Surgery
PROC: 0DTN4ZZ Resection of Sigmoid Colon, Percutaneous Endoscopic Approach (ICD-10-PCS; principal; 2019-02-28 07:30)
PROC: 0WQF4ZZ Repair Abdominal Wall, Percutaneous Endoscopic Approach (ICD-10-PCS; 2019-02-28 07:30)
DX: K57.32 Diverticulitis of large intestine without perforation or abscess without bleeding (principal); K42.9 Umbilical hernia without obstruction or gangrene; Z79.51 Long term (current) use of inhaled steroids; Z79.899 Other long term (current) drug therapy
CPT/HCPCS: 36415; 71045; 80048; 840; 85025; 85027; 88305; 93005; 93010; 94799; J0131; J0330; J0690; J1100; J1170; J1644; J1885; J2250; J2270; J2405; J2550; J2704; J2710; J3010; J3480; J3490; J7060; S0028